=== PATIENT | female | born 1945 | race Caucasian/White ===

== ENCOUNTER → 2017-07-20 | Outpatient (CLI) | payer OTHER | LOC: FIMAGING 14:22 | PROVIDERS: ATTEND Family Medicine | DX: Z13.820 Encounter for screening for osteoporosis (principal); M85.89 Other specified disorders of bone density and structure, multiple sites; Z78.0 Asymptomatic menopausal state ==

== ENCOUNTER 2018-06-27 14:03 | Emergency (ER) | payer OTHER ==
--- NOTE | 2018-06-27 14:09 | EDPHY ---
H & P Source: Patient Exam Limitations: No limitations - Personal History Tetanus Vaccine Date: Spring 2011 - Medical/Surgical History Other PMH: Past medical history: Hypertension - Family History Significant Family History: No pertinent family hx - Social History Smoking Status: Never smoked Time Seen by Provider: 06/27/18 14:07 HPI/ROS: CHIEF COMPLAINT: Presyncope after working in her garden. HISTORY OF PRESENT ILLNESS: The patient is brought to the emergency department with complaints of presyncope that occurred after working in her garden. The patient reported associated nausea. She bent down and stood up and developed symptoms of presyncope. She did not have any true syncope. She has no complaints of chest pain or shortness of breath. She denies any headache, numbness or weakness. The patient does have a history of hypertension. The patient denies any vomiting, diarrhea or dysuria. She feels better after receiving IV fluids and Zofran which was administered by the pre-hospital team. REVIEW OF SYSTEMS: A comprehensive 10 point review of systems is otherwise negative aside from elements mentioned in the history of present illness. (Be Adams) - Physical Exam Exam: General Appearance: Elderly female, no acute distress Eyes: Pupils equal and round no pallor or injection ENT, Mouth: Mucous membranes moist Respiratory: There are no retractions, lungs are clear to auscultation Cardiovascular: Regular rate and rhythm Gastrointestinal: Abdomen is soft and nontender, no masses, bowel sounds normal Neurological: 5/5 strength noted all 4 extremities, grossly normal cranial nerves Skin: Warm and dry, no rashes Musculoskeletal: Neck is supple nontender Extremities: symmetrical, full range of motion Psychiatric: Patient is oriented X 3, there is no agitation (Be Adams) Constitutional: Initial Vital Signs Temperature (C) 36.5 C 06/27/18 14:22 Heart Rate 71 06/27/18 14:22 Respiratory Rate 18 06/27/18 14:22 Blood Pressure 108/54 L 06/27/18 14:22 O2 Sat (%) 92 06/27/18 14:22 O2 Delivery Mode Room Air Allergies/Adverse Reactions: Penicillins Allergy (Verified 06/27/18 14:19) Home Medications: Medication Instructions Recorded Fexofenadine HCl [Sherice] 60 mg PO DAILY 08/03/12 Venlafaxine Xr [Effexor Xr 75MG 75 mg PO DAILY 08/03/12 (RX)] Aspirin 06/27/18 Gabapentin 06/27/18 HCTZ (*) 06/27/18 Losartan Potassium 06/27/18 Medical Decision Making - Diagnostics EKG Interpretation: EKG: Complete interpretation has been separately recorded in the [facility] archive. Summary impression: Sinus rhythm, rate 72, no ST segment elevation or depression (Be Adams) ED Course/Re-evaluation: ED course: Patient arrives by paramedics after presyncopal episode which sounds to be vasovagal in nature. The patient was working outside in the hot sun today. She does have a history of similar symptoms with use exposure. The patient arrives and is noted to be hemodynamically stable. She had nausea prior to arrival which resolved with Zofran. The patient was placed on a cardiac rehab nurse. Her EKG demonstrates no evidence of ischemia or worrisome arrhythmia. She received a L of normal saline. Care to Dr. Maldonado at 3pm. Patient was noted to have a sodium of 124. Plan for IV fluid rehydration, recheck of electrolytes, road test and discharged home if ambulatory. (Be Adams) 1515: Patient care assumed from Dr. Adams at shift change. 1630: Patient's repeat I-stat reveals an improving sodium She is safe to be discharged home (Paul Maldonado) Differential Diagnosis: Differential diagnosis considered includes arrhythmia, dehydration, vasovagal episode, anemia, metabolic abnormality (Be Adams) - Data Points Laboratory Results: Laboratory Results 06/27/18 14:25 06/27/18 14:25 06/27/18 06/27/18 06/27/18 16:01 14:29 14:25 WBC RBC Hgb POC Hgb 13.3 gm/dL gm/dL (12.6-16.3) Hct POC Hct 39 % % (38-47) MCV MCH MCHC RDW Plt Count MPV Neut % (Auto) Lymph % (Auto) [place] % (Auto) Eos % (Auto) Baso % (Auto) Nucleat RBC Rel Count Absolute Neuts (auto) Absolute Lymphs (auto) Absolute Monos (auto) Absolute Eos (auto) Absolute Basos (auto) Absolute Nucleated RBC Immature Gran % Immature Gran # POC Sodium 128 mEq/L L mEq/L (135-145) Sodium 124 mEq/L L mEq/L (135-145) POC Potassium 3.5 mEq/L mEq/L (3.3-5.0) Potassium 3.8 mEq/L mEq/L (3.5-5.2) POC Chloride 89 mEq/L L mEq/L (97-110) Chloride 86 mEq/L L mEq/L (97-110) Carbon Dioxide 27 mEq/l mEq/l (22-31) POC Total CO2 28 mEq/L mEq/L (22-31) Anion Gap 11 mEq/L mEq/L (6-14) POC BUN 14 mg/dL mg/dL (7-23) BUN 14 mg/dL mg/dL (7-23) Creatinine 0.9 mg/dL mg/dL (0.6-1.0) POC Creatinine 1.1 mg/dL H mg/dL (0.6-1.0) Estimated GFR > 60 Glucose 130 mg/dL H mg/dL (70-100) POC Glucose 138 mg/dL H mg/dL (70-100) Calcium 9.5 mg/dL mg/dL (8.5-10.4) POC Troponin I 0.00 ng/mL ng/mL (0.00-0.08) 06/27/18 14:25 WBC 10.21 10^3/uL H 10^3/uL (3.80-9.50) RBC 4.53 10^6/uL 10^6/uL (4.18-5.33) Hgb 14.2 g/dL g/dL (12.6-16.3) POC Hgb Hct 41.3 % % (38.0-47.0) POC Hct MCV 91.2 fL fL (81.5-99.8) MCH 31.3 pg pg (27.9-34.1) MCHC 34.4 g/dL g/dL (32.4-36.7) RDW 12.5 % % (11.5-15.2) Plt Count 430 10^3/uL H 10^3/uL (150-400) MPV 8.6 fL L fL (8.7-11.7) Neut % (Auto) 56.3 % % (39.3-74.2) Lymph % (Auto) 30.8 % % (15.0-45.0) [place] % (Auto) 10.4 % % (4.5-13.0) Eos % (Auto) 1.5 % % (0.6-7.6) Baso % (Auto) 0.7 % % (0.3-1.7) Nucleat RBC Rel Count 0.0 % % (0.0-0.2) Absolute Neuts (auto) 5.76 10^3/uL 10^3/uL (1.70-6.50) Absolute Lymphs (auto) 3.14 10^3/uL H 10^3/uL (1.00-3.00) Absolute Monos (auto) 1.06 10^3/uL H 10^3/uL (0.30-0.80) Absolute Eos (auto) 0.15 10^3/uL 10^3/uL (0.03-0.40) Absolute Basos (auto) 0.07 10^3/uL 10^3/uL (0.02-0.10) Absolute Nucleated RBC 0.00 10^3/uL 10^3/uL (0-0.01) Immature Gran % 0.3 % % (0.0-1.1) Immature Gran # 0.03 10^3/uL 10^3/uL (0.00-0.10) POC Sodium Sodium POC Potassium Potassium POC Chloride Chloride Carbon Dioxide POC Total CO2 Anion Gap POC BUN BUN Creatinine POC Creatinine Estimated GFR Glucose POC Glucose Calcium POC Troponin I Medications Given: Discontinued Medications Sodium Chloride (Ns) 1,000 mls @ 0 mls/hr IV EDNOW ONE; Wide Open PRN Reason: Protocol Stop: 06/27/18 14:13 Last Admin: 06/27/18 14:36 Dose: 1,000 mls Point of Care Test Results: Chemistry 06/27/18 06/27/18 16:01 14:29 POC Sodium 128 mEq/L L mEq/L (135-145) POC Potassium 3.5 mEq/L mEq/L (3.3-5.0) POC Chloride 89 mEq/L L mEq/L (97-110) POC Total CO2 28 mEq/L mEq/L (22-31) POC BUN 14 mg/dL mg/dL (7-23) POC Creatinine 1.1 mg/dL H mg/dL (0.6-1.0) POC Glucose 138 mg/dL H mg/dL (70-100) POC Troponin I 0.00 ng/mL ng/mL (0.00-0.08) ISTAT H&H 06/27/18 16:01 POC Hgb 13.3 gm/dL gm/dL (12.6-16.3) POC Hct 39 % % (38-47) Departure - Departure Disposition: Home, Routine, Self-Care Clinical Impression: Vasovagal episode, Hyponatremia Condition: Good Instructions: Syncope (ED) Additional Instructions: 1. Return to the emergency department for any recurrent passing out, vomiting or other concerns. 2. Please be sure to increase your fluid intake of electrolyte containing solutions while working outside in the hot sun. Referrals: Chana Zhu MD [Primary Care Provider] - As per Instructions
[2018-06-27] MEDS ORDERED: NS 1,000 ML IV ONE (14:12)
--- NOTE | 2018-06-27 14:16 | CPEKG ---
Test Reason : OPEN Blood Pressure : / mmHG Vent. 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
[2018-06-27 14:42] LABS: PLATELET COUNT 430 10^3/uL (150-400)
[2018-06-27 16:39] VITALS: BP 128/67
== END 2018-06-27 16:46 | disposition home or self-care (01) ==
LOC: EDUNIT#
DX: R55 Syncope and collapse (principal); E87.1 Hypo-osmolality and hyponatremia; E86.9 Volume depletion, unspecified; I10 Essential (primary) hypertension
CPT/HCPCS: 82435-PO; 82565-PO; 82947-PO; 84132-PO; 84295-PO; 84484-ER; 84520-PO; 85014-ER

== ENCOUNTER 2018-07-19 17:15 | Emergency (ER) | payer OTHER | END 2018-07-19 20:15 | disposition home or self-care (01) ==